=== PATIENT | female | born 1985 | race Caucasian/White ===

== ENCOUNTER → 2016-04-17 | Day surgery (SDC) | payer OTHER ==
[~2016-04-17] MED LIST: Acetaminophen/Codeine 300-30 MG Tab PO PRN; Dexamethasone 4 MG/ML 5 ML MDV ONE; HYDROmorphone 1 MG/ML Syringe ONE; Ketorolac 30 MG/ML SDV ONE; Lidocaine 1% 2 ML SDV ONE; Lidocaine 1%/Sod Bicarbonate in NS 8.4% 1 ML Syringe IV PRN; Metoclopramide 10 MG/2 ML SDV IVPUSH PRN; Metoclopramide 10 MG/2 ML SDV ONE; Midazolam 1 MG/ML 2 ML SDV ONE; Ondansetron 4 MG/2 ML SDV IVPUSH PRN; Ondansetron 4 MG/2 ML SDV ONE; Propofol 200 MG/20 ML SDV ONE; Rocuronium 50 MG/5 ML Vial ONE; Scopolamine 1.5 MG Transdermal Patch TRDERM ONE; Sodium Chloride 0.9% 10 ML Syringe FLUSH PRN; Sodium Chloride 0.9% 50 ML SDV ONE; Succinylcholine/Normal Saline 100 MG/5 ML Syringe ONE; fentaNYL 100 MCG/2 ML SDV IVPUSH PRN; fentaNYL 250 MCG/5 ML SDV ONE
[2016-04-17] MEDS: Lactated Ringers 1,000 ML IV SCH ×2 (09:35→12:45)
--- NOTE | 2016-04-17 09:46 | PCM.PREANE ---
Preanesthetic Assessment - ANESTHESIA/TRANSFUSION/FAMILY HX Anesthesia/Transfusion History: No Prior Transfusion(s), Prior Anesthesia (no prob) Type of Anesthesia Reaction: Denies: Allergy, Anesthesia Awareness, Excessive Somnolence, Excessive Nausea/Vomiting, Excessive Itching, Excessive Shivering, Malignant Hyperthermia, Malignant Hyperthermia, Family History, Pseudocholinesterase Deficiency, Pseudocholinesterase Deficiency, Family History of, Urinary Retention, Unknown, Other (see below) Family History of Anesthesia Reaction: No - REVIEW OF SYSTEMS Constitutional: Reports: no symptoms PUBLIC INFORMATION OFFICER: Reports: no symptoms Respiratory: Reports: no symptoms Cardiovascular: Reports: no symptoms GI: Reports: no symptoms Other: Reports: none - PHYSICAL ASSESSMENT HR: 91 O2 Sat by Pulse Oximetry: 100 RR: 16 BP: 113/68 Temp: 98.7 C Height: 5 cm Weight: 68.039 kg NPO Status Date: 04/17/16 NPO Status Time: 19:15 ASA Class: 2 Mental Status: alert & oriented x3 Airway Class: Mallampati = 1 Dentition: Reports: normal dentition Thyro-Mental Finger Breadths: 3 Mouth Opening Finger Breadths: 5 ROM/Head Extension: full Respiratory Status: lungs clear to auscultation bilaterally Cardiovascular Status: regular rate & rhythm, normal S1, S2, no murmur, blood pressure WNL - LAB Values: Laboratory Last Values WBC 7.23 K/mm3 (3.98-10.04) 04/15/16 08:02 RBC 4.70 M/mm3 (3.98-5.22) 04/15/16 08:02 Hgb 13.9 gm/L (11.2-15.7) 04/15/16 08:02 Hct 40.7 % (34.1-44.9) 04/15/16 08:02 MCV 86.6 fl (79.4-94.8) 04/15/16 08:02 MCH 29.6 pg (25.6-32.2) 04/15/16 08:02 MCHC 34.2 g/dl (32.2-35.5) 04/15/16 08:02 RDW Std Deviation 40.8 fL (36.4-46.3) 04/15/16 08:02 Plt Count 249 K/mm3 (182-369) 04/15/16 08:02 MPV 9.8 fl (9.4-12.3) 04/15/16 08:02 Neut % (Auto) 70.0 % (34.0-71.1) 04/15/16 08:02 Lymph % (Auto) 20.7 % (19.3-51.7) 04/15/16 08:02 [place] % (Auto) 7.1 % (4.7-12.5) 04/15/16 08:02 Eos % (Auto) 1.8 (0.7-5.8) 04/15/16 08:02 Baso % (Auto) 0.3 % (0.1-1.2) 04/15/16 08:02 Neut # 5.06 K/mm3 (1.56-6.13) 04/15/16 08:02 Lymph # 1.50 K/mm3 (1.18-3.74) 04/15/16 08:02 [place] # 0.51 K/mm3 (0.24-0.36) H 04/15/16 08:02 Eos # 0.13 K/mm3 (0.04-0.36) 04/15/16 08:02 Baso # 0.02 K/mm3 (0.01-0.08) 04/15/16 08:02 Creatinine 0.8 mg/dL (0.55-1.02) 04/15/16 08:02 Est Cr Clr Drug Dosing TNP 04/15/16 08:02 Estimated GFR (MDRD) > 60 mL/min (>60) 04/15/16 08:02 Urine Color Light yellow (Yellow) 04/15/16 08:02 Urine Appearance Clear (Clear) 04/15/16 08:02 Urine pH 7.0 (5.0-8.0) 04/15/16 08:02 Ur Specific [place] 1.015 (1.005-1.030) 04/15/16 08:02 Urine Protein Negative (Negative) 04/15/16 08:02 Urine Glucose (UA) Negative (Negative) 04/15/16 08:02 Urine Ketones Negative (Negative) 04/15/16 08:02 Urine Occult Blood 2+ (Negative) H 04/15/16 08:02 Urine Nitrite Negative (Negative) 04/15/16 08:02 Urine Bilirubin Negative (Negative) 04/15/16 08:02 Urine Urobilinogen 0.2 (0.2-1.0) 04/15/16 08:02 Ur Leukocyte Esterase Negative (Negative) 04/15/16 08:02 Urine HCG, Qual Negative (NEGATIVE) 04/15/16 08:02 Blood Type A POSITIVE 04/15/16 08:02 Gel Antibody Screen Negative 04/15/16 08:02 - ALLERGIES Allergies/Adverse Reactions: Allergies Allergy/AdvReac Type Severity Reaction Status Date / Time oxycodone HCl [From Percocet] Allergy Respiratory Verified 02/03/15 08:31 Depression bactrim Allergy Swollen Uncoded 02/03/15 08:31 Tongue - BLOOD Blood Available: Yes Product(s) Available: PRBC - ANESTHESIA PLAN Preop Beta Mike: No Anesthesia Type Planned: general anesthesia - ACKNOWLEDGEMENTS Pt an appropriate candidate for the planned anesthesia: Yes Alternatives and risks of anesthesia discussed w pt/guardian: Yes Pt/Guardian understands and agree with anesthesia plan: Yes PreAnesthesia Questionnaire - Past Health History Medical/Surgical History: Denies Medical/Surgical History Cardiovascular History: Reports: None Respiratory History: Reports: None Gastrointestinal History: Reports: None Genitourinary History: Reports: None [employer] History: Reports: None, : 3 Para: 3 Other OB/BYN History: 3 c-sections, dysmennorhia Musculoskeletal History: Reports: None Neurological History: Reports: None Psychiatric History: Reports: None Endocrine/Metabolic History: Reports: None Hematologic History: Reports: None Immunologic History: Reports: None Oncologic (Cancer) History: Reports: None Dermatologic History: Reports: None - Infectious Disease History Infectious Disease History: Reports: None - Past Surgical History Head Surgeries/Procedures: Reports: None HEENT Surgical History: Reports: Oral surgery, Tonsillectomy Female Surgical History: Reports: section, Tubal ligation - SUBSTANCE USE Smoking Status *Q: Never Smoker Second Hand Smoke Exposure: No Days Per Week of Alcohol Use: 0 Number of Drinks Per Day: 0 Total Drinks Per Week: 0 Recreational Drug Use History: No - HOME MEDS Home Medications: Home Meds Fish Oil/Sledge-3 Fatty Acids [Fish Oil 1,000 MG] 1 cap PO DAILY 04/16/16 [ History] L.acidoph,Paracasei, B.lactis [Probiotic] 1 cap PO DAILY 04/16/16 [History] - CURRENT (IN HOUSE) MEDS Current Meds: Current Medications Lactated Ringer's (Ringers, Lactated) 1,000 mls @ 125 mls/hr IV ASDIRECTED DIONNA Stop: 04/17/16 23:00 Lidocaine/Sodium Bicarbonate (Buffered Lidocaine 1% In Ns 8.4%) 0.25 ml IV ONETIME PRN PRN Reason: Prior to IV Start Stop: 04/17/16 18:00 Sodium Chloride (Saline Flush) 10 ml FLUSH ASDIRECTED PRN PRN Reason: Keep Vein Open Stop: 04/17/16 18:00 Discontinued Medications Bupivacaine HCl (Marcaine 0.5%) Confirm Administered Dose 30 ml .ROUTE .STK-MED ONE Stop: 04/17/16 09:20 Fentanyl (Sublimaze) Confirm Administered Dose 250 mcg .ROUTE .STK-MED ONE Stop: 04/17/16 09:23 Lidocaine HCl (Lidocaine 1%) Confirm Administered Dose 4 ml .ROUTE .STK-MED ONE Stop: 04/17/16 09:25 Lidocaine/Epinephrine (Xylocaine 1% With Epinephrine 1:100,000) Confirm Administered Dose 20 ml .ROUTE .STK-MED ONE Stop: 04/17/16 09:19 Midazolam HCl (Versed 1 Mg/Ml) Confirm Administered Dose 2 mg .ROUTE .STK-MED ONE Stop: 04/17/16 09:23 Propofol (Diprivan 20 Ml) Confirm Administered Dose 400 mg .ROUTE .STK-MED ONE Stop: 04/17/16 09:23 Rocuronium [place] (Zemuron) Confirm Administered Dose 50 mg .ROUTE .STK-MED ONE Stop: 04/17/16 09:26 Sodium Chloride (Normal Saline) Confirm Administered Dose 50 ml .ROUTE .STK-MED ONE Stop: 04/17/16 09:20 Succinylcholine Chloride (Succinylcholine In Ns Pf) Confirm Administered Dose 100 mg .ROUTE .STK-MED ONE Stop: 04/17/16 09:26
[2016-04-17] MEDS: Bupivacaine 0.5% 30 ML SDV ONE ×2 (10:55→11:19)
[2016-04-17] MEDS: Lidocaine 1% with EPINEPHrine 1:100,000 20 ML MDV ONE ×2 (11:19→11:20)
--- NOTE | 2016-04-17 12:17 | PCM.POSTAN ---
POST ANESTHESIA ASSESSMENT - MENTAL STATUS Mental Status: alert, oriented - VITAL SIGNS Pulse Rate: 116 SaO2: 98 Resp Rate: 16 Blood Pressure: 111/76 Temperature: 36.6 C - RESPIRATORY Respiratory Status: respiratory rate WNL, airway patent, O2 saturation stable - CARDIOVASCULAR CV Status: pulse rate WNL, blood pressure stable - GASTROINTESTINAL GI Status: nauseau Free Text/Narrative:: initially after emergence, better in pacu - PAIN Pain Score: 0 - POST OP HYDRATION Hydration Status: adequate & stable
[2016-04-17] MEDS: HYDROmorphone 0.5 MG/0.5 ML Syringe IVPUSH PRN ×2 (12:27→13:02)
[2016-04-17 14:47] VITALS: BP 106/74
--- NOTE | 2016-04-17 16:19 | PCM.OPNOTE ---
- General Post-Op/Procedure Note Date of Surgery/Procedure: 04/17/16 Operative Procedure(s): Laparoscopically assisted total vaginal hysterectomy with bilateral salpingectomy Findings: The patient has significant varicosities in the right adnexal area. Ovaries looked normal but smooth surfaced such as might be location with polycystic ovarian syndrome. Patient status post tubal ligation with the isthmic portion of each tube missing. The uterus was normal at to mildly and a large in size. There is significant scarring in the anterior cul-de-sac. Posterior cul-de-sac was unremarkable. The appendix was unremarkable. Liver edge was unremarkable with no scarring. Pre Op Diagnosis: 1. dysmenorrhea. 2. dyspareunia. 3. pelvic pain Post-Op Diagnosis: Same Anesthesia Technique: General ET tube, Local Other Anesthesia Type: Marcaine 0.5% locally in the abdominal laparoscopic incisions-total 20 cc a Primary Surgeon: Johnny Guadalupe Secondary Surgeon: Gerardo Weber Anesthesia Provider: Anna Castrejon Pathology: Uterus, bilateral segments of fallopian tubes Fluid Replacement, Intraop: 1,800 EBL in mLs: 100 Drain/Tube Comments:: Indwelling bladder catheter-used only during surgery- removed at the end of surgery. Complications: None Condition: Good Free Text/Narrative:: Intake & Output 04/17/16 04/17/16 04/17/16 06:59 14:59 22:59 Intake Total 1300 Output Total 120 Balance 1180 Surgeon duration: One hour 19 minutes Consultations: None Condition: Good Procedure: The patient was taken to the operating room and placed in supine position on the operating table. She received 2 g of Ancef preoperatively for infection prophylaxis. She had sequential compression stockings in place for DVT prophylaxis. She was administered general endotracheal anesthesia. After adequate anesthesia the patient was placed in a dorsal lithotomy position and prepped and draped in the usual fashion for this procedure. The uterine manipulator was then placed in usual fashion. Bazan catheter was placed. Laparoscopy was then performed with the infraumbilical and suprapubic 5 mm port sites being developed with infiltration with Marcaine 0.5% 3-5 cc each. Verres needle was used to create a pneumoperitoneum using approximately 3 L of CO2. Laparoscopic sleeve and trocar were then placed without incident. Laparoscope was placed and the suprapubic site was developed with direct visualization with the scope. Eventually 2 other lateral 5 millimeter sites were developed under direct visualization also in the same fashion. The right fallopian tube isthmic portion was was found to be surgically absent consistent with tubal ligation at time of her last . The right ovary was taken down by crossclamping the infundibulopelvic ligament. Carried down to the triple ligament including the broad ligament, the ovarian ligament and round ligament were then taken down in a routine fashion using the LigaSure system. Broad ligament was then taken down to the level of the uterine vasculature and uterine vasculature on the right side was then crossclamped and cauterized. Care was taken to avoid the ureter which was identified prior to the broad ligament development. The same procedure was done on the left side except that the fallopian tube was present and was removed with the specimen. The left fallopian tube also was noted to be status post tubal ligation with isthmic portion missing essentially leaving the fimbriated end.. At this point the anterior bladder flap was then developed and the bladder was pushed back off using sharp and blunt dissection. At this point the uterus was removed vaginally. The patient was repositioned weighted speculum was placed in the vagina. The cervix is infiltrated with lidocaine quarter percent with epinephrine-20 cc total. A full circumference incision was made through the vaginal epithelium and the bladder blade flap was pushed well back off the cervix. Posterior cul-de-sac was entered sharply. Left uterosacral ligament was then taken down using a LigaSure vaginal clamp system. It was done on the right side. The cardinal ligaments was taken down to the level of the uterine vasculature which had already been developed. At this time the specimen was completely removed. The last pedicles on each side were suture ligated with #1 Vicryl. The vaginal cuff was then run for hemostatic reasons from approximately 2:00 to the 10:00 position posteriorly using 0 Monocryl suture in a running locked fashion. At this time hemostasis was confirmed and sponge, instrument and needle counts were correct. The peritoneal cavity was then closed using a pursestring suture externalized and pedicles in case of bleeding. Vaginal cuff was closed with 0 Monocryl in a running locked suture from right to left side. At this point the laparoscope was again placed and pneumoperitoneum was reestablished. It should be noted gloves were changed a prior to this portion of the procedure. Hemostasis was confirmed no abnormalities were noted and at this time procedures discontinued. The 5 mm port port sleeves were removed without incident. The upper sleeve was removed after pneumoperitoneum was reversed. Each of these incisions closed with a single interrupted suture of 3- 0 Monocryl. There further approximated with Dermabond skin glue. Patient had Bazan catheter removed at the end of the procedure. She was awakened from general endotracheal anesthesia after being referred returned to a supine position and tolerated procedure well. She left the operating room in good condition.
== END | disposition home or self-care (01) ==
LOC: JD.SDS 09:13
PROVIDERS: ATTEND Obstetrics & Gynecology
DX: N94.6 Dysmenorrhea, unspecified (principal); N94.10 Unspecified dyspareunia; R10.2 Pelvic and perineal pain; Z98.51 Tubal ligation status; K59.00 Constipation, unspecified; N94.3 Premenstrual tension syndrome; Z88.6 Allergy status to analgesic agent; Z88.2 Allergy status to sulfonamides
CPT/HCPCS: 36415; 58552; 81003; 81025; 82565; 85025; 86850; 86900; 86901; 88307; A9270; J0330; J1100; J1170; J1885; J2250; J2405; J2765; J3010; J7120; 00944; J2704

== ENCOUNTER 2022-07-10 19:42 | Emergency (ER) | payer BC, MEDICAID ==
[2022-07-10 19:51] VITALS: BP 137/86; PULSE 101
[2022-07-10] MEDS ORDERED: Amoxicillin 500 MG Cap PO ONE (20:11)
== END 2022-07-10 20:28 | disposition home or self-care (01) ==
LOC: JD.ED 19:42
DX: K02.9 Dental caries, unspecified (principal); Z88.5 Allergy status to narcotic agent; Z88.2 Allergy status to sulfonamides
CPT/HCPCS: 99282; A9270